=== PATIENT | male | born 1930 | race Caucasian/White ===

== ENCOUNTER → 2017-03-08 | Outpatient (CLI) | payer MEDICARE, BC ==
[2012-01-01 08:34] VITALS: BP 152/101
[~2017-03-08] MED LIST: ASPIRIN E.C. 8181 M1 PO; FISH OIL 1000MG1 CAP PO; GLUCOSAMINE CHO1 CA1 PO; LISINOPRIL40 MG PO; SIMVASTATIN40 MG PO
== END ==
LOC: RAD 14:32
DX: M25.511 Pain in right shoulder (principal)

== ENCOUNTER → 2017-11-15 | Outpatient (CLI) | payer MEDICARE ==
[2012-01-01 08:34] VITALS: BP 152/101
== END ==
LOC: LAB 10:20
PROVIDERS: Family Medicine
DX: E03.8 Other specified hypothyroidism (principal)

== ENCOUNTER 2019-04-07 17:41 | Emergency (ER) | payer MEDICARE, OTHER ==
[~2019-04-07] VITALS: Ht 172.7 cm; Wt 73.2 kg
[~2019-04-07 17:41] MED LIST changes: -GLUCOSAMINE CHO1 CA1 PO; +MASON NATURAL G1 CAP PO; +PRAVACHOL 40MG40 MG PO; -SIMVASTATIN40 MG PO
[2019-04-07] MEDS ORDERED: SYNTHROID25 MCG (18:02)
[2019-04-07 18:37] LABS: HEMATOCRIT 47.3 % (42.0-52.0); HEMOGLOBIN 15.8 g/dL (13.5-18.0); MEAN CELL VOLUME 96 fl (78-100); MEAN CORPUSCULAR HEMOGLOBIN 32 pg (27-31); MEAN CORPUSCULAR HGB CONC 33 g/dL (33-37); MEAN PLATELET VOLUME 9.6 fl (7.4-10.4); PLATELET COUNT 201 K/mm3 (130-400); RED BLOOD COUNT 4.94 M/mm3 (4.20-5.60); RED CELL DISTRIBUTION WIDTH 12.4 % (11.5-14.5); WHITE BLOOD COUNT 17.2 K/mm3 (4.8-10.8)
[2019-04-07 19:02] LABS: ALT/SGPT 11 U/L (0-55); AST-SGOT 16 U/L (5-34); CALCIUM 9.8 mg/dL (8.8-10.0); CARBON DIOXIDE 24 mmol/L (23-31); POTASSIUM 4.1 mmol/L (3.5-5.1); SODIUM 136 mmol/L (136-145); TOTAL BILIRUBIN 0.9 mg/dL (0.2-1.2); TOTAL PROTEIN 6.6 g/dL (6.2-8.1)
[2019-04-07 19:08] LABS: ALBUMIN 3.9 g/dL (3.4-4.8); GLUCOSE 127 mg/dL (75-110)
[2019-04-07 19:18] LABS: TROPONIN-I < 0.03 ng/mL (<0.030)
[2019-04-07 19:24] LABS: URINE APPEARANCE CLEAR; URINE COLOR YELLOW
[2019-04-07 19:25] LABS: URINE BILIRUBIN NEGATIVE (NEGATIVE); URINE BLOOD TRACE (NEGATIVE); URINE GLUCOSE NEGATIVE (NEGATIVE); URINE KETONE 1+ (NEGATIVE); URINE LEUKOCYTE ESTERASE NEGATIVE (NEGATIVE); URINE NITRATE NEGATIVE (NEGATIVE); URINE PROTEIN(semi-quant) TRACE mg/dL (NEGATIVE); URINE UROBILINOGEN NORMAL (NORMAL)
[2019-04-07 20:07] LABS: LYMPHOCYTE 4 % (20-51); MONOCYTE 8 % (3-10); NEUTROPHILS 88 % (42-75)
[2019-04-07 20:50] VITALS: BP 131/68
[2019-04-08] MEDS ORDERED: CARDIZEM CD240 M1 PO (11:27)
[2019-04-08] MEDS ORDERED: MASON NATURAL1000 IU PO (11:28)
[2019-04-08] MEDS ORDERED: ZESTORETIC 20-1 EACH PO (11:28)
[2019-04-08] MEDS ORDERED: ESTER-C 500 MG1 EACH PO (11:29)
[2019-04-08] MEDS ORDERED: VIAGRA 25MG TAB25 MG PO (11:30)
[2019-04-08] MEDS ORDERED: SYNTHROID0.05 MG PO (17:33)
[2019-04-09] MEDS ORDERED: IPRATROPIUM BROM3 M1 IH (09:00)
[2019-04-09] MEDS ORDERED: ZITHROMAX500 M2 PO (09:00)
[2019-04-09] MEDS ORDERED: PREDNISONE20 M1 PO (09:01)
[2019-04-09] MEDS ORDERED: MUCINEX1200 MG PO (09:01)
== END 2019-04-07 20:50 | disposition other institution (70) ==
LOC: ED 17:41
PROVIDERS: Nurse Practitioner Family
DX: J44.1 Chronic obstructive pulmonary disease with (acute) exacerbation (principal); J18.1 Lobar pneumonia, unspecified organism; R09.02 Hypoxemia; I10 Essential (primary) hypertension; K21.9 Gastro-esophageal reflux disease without esophagitis; E78.00 Pure hypercholesterolemia, unspecified; J44.9 Chronic obstructive pulmonary disease, unspecified; E03.9 Hypothyroidism, unspecified; Z98.890 Other specified postprocedural states; Z96.652 Presence of left artificial knee joint; Z87.891 Personal history of nicotine dependence
CPT/HCPCS: J0696; J2930; J7030